=== PATIENT | male | born 2000 | race Caucasian/White ===

== ENCOUNTER → 2024-10-31 09:36 | Outpatient (BNVA) | payer OTHER, SELFPAY | PROVIDERS: Visit Provider Physician Assistant Medical | DX: T26.91XA Corrosion of right eye and adnexa, part unspecified, initial encounter (principal); T26.92XA Corrosion of left eye and adnexa, part unspecified, initial encounter; T49.3X1A Poisoning by emollients, demulcents and protectants, accidental (unintentional), initial encounter | CPT/HCPCS: 92002; 99203 ==

== ENCOUNTER → 2024-11-02 09:05 | Outpatient (BNVA) | payer OTHER, SELFPAY | PROVIDERS: Visit Provider Physician Assistant | DX: G43.009 Migraine without aura, not intractable, without status migrainosus (principal); T26.91XA Corrosion of right eye and adnexa, part unspecified, initial encounter; T26.92XA Corrosion of left eye and adnexa, part unspecified, initial encounter; T49.3X1A Poisoning by emollients, demulcents and protectants, accidental (unintentional), initial encounter | CPT/HCPCS: 99214 ==